=== PATIENT | female | born 1975 | race Two or more races ===

== ENCOUNTER 2022-03-02 11:51 | Emergency (ER) | payer SELFPAY ==
[~2022-03-02] VITALS: Ht 165.1 cm; Wt 104.3 kg
[2022-03-02 11:55] VITALS: BP 151/97
[2022-03-02] MEDS ORDERED: ASPirin 81 mg TAB PO ONE (12:15)
== END 2022-03-02 16:53 | disposition left against medical advice (07) ==
LOC: ER 11:51
DX: R07.89 Other chest pain (principal); R51.9 Headache, unspecified; Z53.21 Procedure and treatment not carried out due to patient leaving prior to being seen by health care provider
CPT/HCPCS: 71045; 93005